=== PATIENT | female | born 1935 | race Caucasian/White ===

== ENCOUNTER 2019-05-06 10:15 | Inpatient (IN) | payer MEDICARE ==
[~2019-05-06] VITALS: Ht 157.5 cm; Wt 71.5 kg
[2019-05-06 14:12] VITALS: BP 156/84
[2019-05-06] MEDS ORDERED: LACTATED RINGERS 1,000 ML IV SCH (14:19)
[2019-05-06] MEDS ORDERED: NIFE30TA13 PO (14:24)
[2019-05-06] MEDS ORDERED: APIX5TAB PO (14:24)
[2019-05-06] MEDS ORDERED: LEVO75TA5 PO (14:24)
[2019-05-06] MEDS ORDERED: AMLO-150 PO (14:24)
[2019-05-06] MEDS ORDERED: LOSA50TA14 PO (14:24)
[2019-05-06] MEDS ORDERED: ATOR-2 PO (14:24)
[2019-05-06 15:11] LABS: BASOPHILS % (AUTO) 1 % (0-1); EOSINOPHILS # (AUTO) 0.31 x10^3/uL (0-0.4); EOSINOPHILS % (AUTO) 4 % (1-7); LYMPHOCYTES # (AUTO) 2.14 x10^3/uL (1-3.4); LYMPHOCYTES % (AUTO) 26 % (22-44); MD NO; MEAN CORPUSCULAR HEMOGLOBIN 27.9 pg (27.0-34.8); MEAN CORPUSCULAR HGB CONC 31.4 g/dL (32.4-35.8); MEAN CORPUSCULAR VOLUME 88.7 fL (80-100); MEAN PLATELET VOLUME 8.7 fL (7.4-10.4); MONOCYTES % (AUTO) 10 % (2-9); NEUTROPHILS # (AUTO) 4.91 x10^3/uL (1.8-6.8); NEUTROPHILS % (AUTO) 60 % (42-75); PLATELET COUNT 257 x10^3/uL (130-400); RED BLOOD COUNT 4.22 x10^6/uL (3.82-5.3); RED CELL DISTRIBUTION WIDTH 18.4 % (9.6-15.2)
[2019-05-06 15:23] LABS: ALBUMIN 3.7 g/dL (3.4-5.0); ANION GAP 9 mmol/L (5-15); CALCIUM 8.9 mg/dL (8.5-10.1); CHLORIDE 111 mmol/L (98-107)
[2019-05-06 15:26] LABS: ALANINE AMINOTRANSFERASE 24 U/L (12-78); ALKALINE PHOSPHATASE 65 U/L (45-117); BILIRUBIN,TOTAL 0.4 mg/dL (0.2-1.0); CREATININE 1.65 mg/dL (0.55-1.02); TOTAL PROTEIN 7.3 g/dL (6.4-8.2)
[2019-05-06] MEDS ORDERED: PAPAVERINE 30 MG/ML, 2ML ONE (17:58)
[2019-05-06] MEDS ORDERED: LIDOCAINE/PF 1%-EPI 1:200K, 30 ML ONE (17:58)
[2019-05-06] MEDS ORDERED: BUPIVACAINE/PF 0.5% ONE (17:58)
[2019-05-06] MEDS ORDERED: PROTAMINE SULFATE 10 MG/ML, 5ML ONE (17:59)
[2019-05-06] MEDS ORDERED: BACITRACIN 50,000 UNIT ONE (17:59)
[2019-05-06] MEDS ORDERED: EPINEPHRINE 1 MG/ML, 1ML ONE (17:59)
[2019-05-06] MEDS ORDERED: THROMBIN (RECOMBINANT) 20,000 UNIT VIAL TP ONE (17:59)
[2019-05-06] MEDS ORDERED: HEPARIN 1,000 UNITS/ML, 10ML ONE (17:59)
[2019-05-06] MEDS ORDERED: FENTANYL PF 250 MCG/5ML ONE (18:17)
[2019-05-06] MEDS ORDERED: PHENYLEPHRINE 10 MG/ML ONE (18:44)
[2019-05-06] MEDS ORDERED: BACITRACIN 50,000 UNIT IM ONE (19:18)
[2019-05-06] MEDS ORDERED: BUPIVACAINE/PF-EPI 0.5% 1:200K INFIL ONE (19:20)
[2019-05-06] MEDS ORDERED: THROMBIN 20,000 UNIT VIAL TP ONE (19:21)
[2019-05-06] MEDS ORDERED: HEPARIN 1,000 UNITS/ML, 30ML IVPush ONE (19:22)
[2019-05-06] MEDS ORDERED: HYDROmorphone 2 MG/ML, 1ML IVPush PRN (19:30)
[2019-05-06] MEDS ORDERED: hydrALAzine 20 MG/ML, 1ML IV PRN (19:30)
[2019-05-06] MEDS ORDERED: OXYcodone 5 MG/5 ML ORAL.SOL UDC PO PRN (19:30)
[2019-05-06] MEDS ORDERED: ALBUTEROL/IPRATROPIUM 2.5MG/0.5MG, 3 ML NPPB PRN (19:30)
[2019-05-06] MEDS ORDERED: ACETAMINOPHEN 325 MG TABLET PO PRN (19:30)
[2019-05-06] MEDS ORDERED: PROMETHAZINE 25 MG/ML, 1ML IV PRN (19:30)
[2019-05-06] MEDS ORDERED: METOPROLOL 1 MG/ML, 5ML IV PRN (19:30)
[2019-05-06] MEDS ORDERED: MIDAZOLAM 1 MG/ML, 2ML IV PRN (19:30)
[2019-05-06] MEDS ORDERED: PROPOFOL 10 MG/ML, 20ML ONE (20:16)
[2019-05-06] MEDS ORDERED: DEXAMETHASONE 4 MG/ML, 1ML ONE (20:16)
[2019-05-06] MEDS ORDERED: SUGAMMADEX 200 MG/2 ML IVPush ONE (20:16)
[2019-05-06] MEDS ORDERED: ONDANSETRON 2MG/ML, 2ML ONE (20:16)
[2019-05-06] MEDS ORDERED: ROCURONIUM 10MG/ML,5ML ONE (20:16)
[2019-05-06] MEDS ORDERED: CEFAZOLIN 1,000 MG ONE (20:16)
[2019-05-06] MEDS ORDERED: METOPROLOL 1 MG/ML, 5ML ONE ×2 (20:17→20:45)
[2019-05-06] MEDS: LACTATED RINGERS 1,000 ML IV SCH (20:37)
[2019-05-06] MEDS ORDERED: hydrALAzine 20 MG/ML, 1ML ONE (20:46)
[2019-05-06] MEDS: APIXABAN 5 MG TABLET PO SCH (21:00)
[2019-05-06] MEDS ORDERED: HYDROcodone/APAP 5/325 TABLET PO PRN (21:00)
[2019-05-06] MEDS: ACETAMINOPHEN 650 MG SUPP PR SCH (21:00)
[2019-05-06] MEDS ORDERED: FENTANYL PF 100 MCG/2ML ONE (21:31)
[2019-05-06] MEDS ORDERED: OXYcodone 5 MG/5 ML ORAL.SOL UDC ONE (21:31)
[2019-05-06] MEDS: FENTANYL PF 100 MCG/2ML IV PRN ×3 (21:33→22:54)
[2019-05-06] MEDS ORDERED: APIXABAN 5 MG TABLET ONE (22:21)
[2019-05-06] MEDS ORDERED: ACETAMINOPHEN 650 MG/20.3 ML UDC ONE (22:25)
[2019-05-07] VITALS: BP 140/80
[2019-05-07] MEDS: ATORVASTATIN 80 MG TABLET PO SCH ×2 (00:39→21:27)
[2019-05-07] MEDS: LACTATED RINGERS 1,000 ML IV SCH ×2 (00:43→14:05)
[2019-05-07 02:36] VITALS: BP 146/87
[2019-05-07] MEDS: ACETAMINOPHEN 650 MG SUPP PR SCH ×4 (03:00→21:26)
[2019-05-07 04:00] VITALS: BP 149/69
[2019-05-07 07:25] VITALS: BP 147/79
[2019-05-07] MEDS: niFEDipine ER 30 MG TABLET.ER PO SCH (08:55)
[2019-05-07] MEDS: APIXABAN 5 MG TABLET PO SCH ×2 (08:55→21:27)
[2019-05-07] MEDS: LOSARTAN 50MG TABLET PO SCH (08:55)
[2019-05-07] MEDS: AMLODIPINE 5 MG TABLET PO SCH (08:55)
[2019-05-07] MEDS: LEVOTHYROXINE 75 MCG TABLET PO SCH (08:56)
[2019-05-07] MEDS ORDERED: ONDANSETRON 2MG/ML, 2ML IVPush PRN ×2 (10:00→16:00)
[2019-05-07] MEDS ORDERED: ONDANSETRON 2MG/ML, 2ML ONE (12:06)
[2019-05-07 12:20] VITALS: BP 168/76
[2019-05-07 19:34] VITALS: BP 145/72
[2019-05-08 00:58] VITALS: BP 157/71
[2019-05-08] MEDS: ACETAMINOPHEN 650 MG SUPP PR SCH ×2 (03:00→09:00)
[2019-05-08] MEDS: LACTATED RINGERS 1,000 ML IV SCH (09:00)
[2019-05-08 09:01] VITALS: BP 158/69
[2019-05-08] MEDS: APIXABAN 5 MG TABLET PO SCH (09:32)
[2019-05-08] MEDS: LEVOTHYROXINE 75 MCG TABLET PO SCH (09:32)
[2019-05-08] MEDS: niFEDipine ER 30 MG TABLET.ER PO SCH (09:32)
[2019-05-08] MEDS: LOSARTAN 50MG TABLET PO SCH (09:32)
[2019-05-08] MEDS: AMLODIPINE 5 MG TABLET PO SCH (09:33)
== END 2019-05-08 13:20 | disposition home or self-care (01) | DRG 39 ==
LOC: ORIP 10:15 → 4WST 05-07 00:27
PROVIDERS: ADMIT Surgery; ATTEND Surgery
PROC: 03UH0JZ Supplement Right Common Carotid Artery with Synthetic Substitute, Open Approach (ICD-10-PCS; 2019-05-06)
PROC: 03CK0ZZ Extirpation of Matter from Right Internal Carotid Artery, Open Approach (ICD-10-PCS; principal; 2019-05-06 15:30)
DX: I65.21 Occlusion and stenosis of right carotid artery (principal); E03.9 Hypothyroidism, unspecified; I10 Essential (primary) hypertension; I77.1 Stricture of artery; R26.0 Ataxic gait; I48.91 Unspecified atrial fibrillation; Z86.73 Personal history of transient ischemic attack (TIA), and cerebral infarction without residual deficits; Z90.710 Acquired absence of both cervix and uterus; Z95.810 Presence of automatic (implantable) cardiac defibrillator; Z90.89 Acquired absence of other organs; Z90.49 Acquired absence of other specified parts of digestive tract; Z82.49 Family history of ischemic heart disease and other diseases of the circulatory system; Z79.01 Long term (current) use of anticoagulants; Z79.899 Other long term (current) drug therapy
CPT/HCPCS: 36415; 71045; 80053; 85025; 93005; C1729; G0378; J0171; J0690; J1100; J1644; J2405; J2704; J2720; J3010; J3490; C1781; J2370; J2440; J7120